=== PATIENT | female | born 1990 | race Caucasian/White ===

== ENCOUNTER 2017-10-16 07:20 | Inpatient (IN) | payer OTHER ==
[2017-10-16] MEDS ORDERED: METHYLERGONOVINE 0.2 MG INJ IM (08:00)
[2017-10-16] MEDS ORDERED: LIDOCAINE 1% (MPF) 30 ML INJ INJ (08:00)
[2017-10-16] MEDS ORDERED: MISOPROSTOL 200 MCG TAB PR (08:00)
[2017-10-16] MEDS ORDERED: CARBOPROST 250 MCG INJ IM (08:00)
[2017-10-16] MEDS ORDERED: BUTORPHANOL 2 MG INJ IV (08:00)
[2017-10-16] MEDS ORDERED: IBUPROFEN 600 MG TAB PO (08:00)
[2017-10-16] MEDS ORDERED: OXYTOCIN 30 UNITS/LR 500 ML IV (08:00)
[2017-10-16] MEDS: LACTATED RINGER'S 1,000 ML IV ×2 (08:19→16:32)
[2017-10-16 08:24] LABS: ADD MAN DIFF? NO
[2017-10-16 08:32] LABS: BASOPHILS % 0.3 % (0.0-2.0); EOSINOPHILS # 0.1 10^3/ul (0.0-0.5); EOSINOPHILS % 0.7 % (0.0-7.0); HEMATOCRIT 36.1 % (37.0-47.0); HEMOGLOBIN 11.8 g/dl (12.0-16.0); LYMPHOCYTES # 1.8 10^3/ul (0.8-2.9); LYMPHOCYTES % 17.3 % (15.0-51.0); MEAN CORPUSCULAR HEMOGLOBIN 28.3 pg (29.0-33.0); MEAN CORPUSCULAR HGB CONC 32.7 g/dl (32.0-37.0); MEAN CORPUSCULAR VOLUME 86.6 fl (82.0-101.0); MONOCYTE # 0.7 10^3/ul (0.3-0.9); MONOCYTES % 6.7 % (0.0-11.0); NEUTROPHIL # 7.5 10^3/ul (1.6-7.5); NEUTROPHILS % 73.8 % (39.0-77.0); NUCLEATED RED BLOOD CELLS% 0.2 /100WBC (0.0-0.0); PLATELET COUNT 219 10^3/UL (140-415); RED BLOOD COUNT 4.17 10^6/ul (4.20-5.40); RED CELL DISTRIBUTION WIDTH 17.1 % (11.5-14.5)
[2017-10-16 08:32] LABS: WHITE BLOOD COUNT 10.2 10^3/ul (4.8-10.8)
[2017-10-16 08:54] LABS: PARTIAL THROMBOPLASTIN TIME 26.9 Sec (25.0-35.0); PROTIME 12.2 Sec (11.9-14.9)
[2017-10-16 09:21] LABS: HEPATITIS B SURFACE ANTIGEN NEGATIVE (NEGATIVE)
[2017-10-16] MEDS ORDERED: MISOPROSTOL 25 MCG CAPSULE (09:50)
[2017-10-16] MEDS: MISOPROSTOL 200 MCG TAB PO (10:30)
[2017-10-16] MEDS ORDERED: MISOPROSTOL 100 MCG TAB PO ×2 (10:30→13:00)
[2017-10-16] MEDS: MISOPROSTOL 25 MCG CAPSULE PO ×3 (14:40→23:00)
[2017-10-16 22:50] LABS: RAPID PLASMA REAGIN NONREACTIVE (NR)
[2017-10-17] MEDS: LACTATED RINGER'S 1,000 ML IV ×4 (00:38→22:27)
[2017-10-17] MEDS: MISOPROSTOL 25 MCG CAPSULE PO ×3 (03:00→14:51)
[2017-10-17] MEDS: OXYTOCIN 30 UNITS/LR 500 ML IV (20:01)
[2017-10-18] MEDS: LACTATED RINGER'S 1,000 ML IV ×2 (02:35→02:48)
[2017-10-18] MEDS ORDERED: NALOXONE (0.4 MG/ML) INJ IV (03:00)
[2017-10-18] MEDS ORDERED: FENTAnyl 2MCG/ML-ROPIV 0.2% 100 ML BAG EPI (03:00)
[2017-10-18] MEDS ORDERED: ONDANSETRON 4 MG INJ IV (03:00)
[2017-10-18] MEDS ORDERED: DIPHENHYDRAMINE 50 MG INJ IV (03:00)
[2017-10-18] MEDS ORDERED: EPHEDrine SULFATE 50 MG/5 ML SYG IV (03:00)
[2017-10-18] MEDS: OXYTOCIN 30 UNITS/LR 500 ML IV ×2 (04:45→04:54)
[2017-10-18] MEDS ORDERED: CARBOPROST 250 MCG INJ IM (09:00)
[2017-10-18] MEDS ORDERED: HYDROCODONE/APAP (5/325) TAB PO (09:00)
[2017-10-18] MEDS ORDERED: ACETAMINOPHEN 325 MG TAB PO (09:00)
[2017-10-18] MEDS ORDERED: DIBUCAINE 1% 30 GM OINT TOP (09:00)
[2017-10-18] MEDS ORDERED: OXYTOCIN 30 UNITS/LR 500 ML IV (09:00)
[2017-10-18] MEDS ORDERED: METHYLERGONOVINE 0.2 MG INJ IM (09:00)
[2017-10-18] MEDS ORDERED: MISOPROSTOL 200 MCG TAB PR (09:00)
[2017-10-18] MEDS: SENNA/DOCUSATE NA (8.6MG/50MG) TAB PO ×2 (09:37→20:29)
[2017-10-18] MEDS: LANOLIN 7 GM TUBE TOP (09:38)
[2017-10-18] MEDS: BENZOCAINE 20% 56 ML SPRAY TOP (09:38)
[2017-10-18] MEDS: WITCH HAZEL/GLYCERIN PAD PR (09:38)
[2017-10-18] MEDS: LACTATED RINGER'S 1,000 ML IV* ×2 (09:42→19:00)
[2017-10-18] MEDS: IBUPROFEN 600 MG TAB PO ×3 (12:00→23:50)
[2017-10-18] MEDS: MINERAL OIL LIGHT 10 ML VIAL TOP (19:00)
[2017-10-19] MEDS: IBUPROFEN 600 MG TAB PO ×4 (06:00→23:53)
[2017-10-19] MEDS: SENNA/DOCUSATE NA (8.6MG/50MG) TAB PO ×2 (09:18→21:07)
[2017-10-19 09:37] LABS: ADD MAN DIFF? NO
[2017-10-19 09:41] LABS: BASOPHIL # 0.1 10^3/ul (0.0-0.1); BASOPHILS % 0.4 % (0.0-2.0); EOSINOPHILS # 0.1 10^3/ul (0.0-0.5); EOSINOPHILS % 0.8 % (0.0-7.0); HEMATOCRIT 36.6 % (37.0-47.0); HEMOGLOBIN 11.9 g/dl (12.0-16.0); LYMPHOCYTES # 2.8 10^3/ul (0.8-2.9); LYMPHOCYTES % 16.6 % (15.0-51.0); MEAN CORPUSCULAR HEMOGLOBIN 28.5 pg (29.0-33.0); MEAN CORPUSCULAR HGB CONC 32.5 g/dl (32.0-37.0); MEAN CORPUSCULAR VOLUME 87.8 fl (82.0-101.0); MEAN PLATELET VOLUME 11.6 fl (7.4-10.4); MONOCYTES % 5.7 % (0.0-11.0); NEUTROPHILS % 75.9 % (39.0-77.0); PLATELET COUNT 217 10^3/UL (140-415); RED BLOOD COUNT 4.17 10^6/ul (4.20-5.40); RED CELL DISTRIBUTION WIDTH 18.4 % (11.5-14.5)
[2017-10-19 09:41] LABS: WHITE BLOOD COUNT 17.2 10^3/ul (4.8-10.8)
[2017-10-20] MEDS: IBUPROFEN 600 MG TAB PO ×2 (05:43→12:00)
[2017-10-20 06:55] LABS: ADD MAN DIFF? NO
[2017-10-20 07:00] LABS: BASOPHIL # 0.1 10^3/ul (0.0-0.1); BASOPHILS % 0.4 % (0.0-2.0); EOSINOPHILS # 0.3 10^3/ul (0.0-0.5); HEMATOCRIT 33.5 % (37.0-47.0); LYMPHOCYTES # 2.5 10^3/ul (0.8-2.9); LYMPHOCYTES % 20.1 % (15.0-51.0); MEAN CORPUSCULAR HEMOGLOBIN 28.9 pg (29.0-33.0); MEAN CORPUSCULAR HGB CONC 32.8 g/dl (32.0-37.0); MEAN CORPUSCULAR VOLUME 88.2 fl (82.0-101.0); MEAN PLATELET VOLUME 11.6 fl (7.4-10.4); MONOCYTE # 0.7 10^3/ul (0.3-0.9); MONOCYTES % 5.5 % (0.0-11.0); NEUTROPHIL # 8.9 10^3/ul (1.6-7.5); NEUTROPHILS % 71.1 % (39.0-77.0); PLATELET COUNT 211 10^3/UL (140-415)
[2017-10-20 07:00] LABS: WHITE BLOOD COUNT 12.5 10^3/ul (4.8-10.8)
[2017-10-20] MEDS ORDERED: DIPHTH/TET/ACEL PERTUSS (ADULT) 0.5 ML VIAL IM* (09:00)
[2017-10-20] MEDS: SENNA/DOCUSATE NA (8.6MG/50MG) TAB PO (09:16)
== END 2017-10-20 14:45 | disposition home or self-care (01) | DRG 775 ==
LOC: L-D 07:20 → PP1 10-18 08:31
PROVIDERS: Obstetrics & Gynecology
PROC: 10E0XZZ Delivery of Products of Conception, External Approach (ICD-10-PCS; principal; 2017-10-18)
PROC: 0UQGXZZ Repair Vagina, External Approach (ICD-10-PCS; 2017-10-18)
PROC: 3E033VJ Introduction of Other Hormone into Peripheral Vein, Percutaneous Approach (ICD-10-PCS; 2017-10-18)
DX: O36.5930 Maternal care for other known or suspected poor fetal growth, third trimester, not applicable or unspecified (principal); O71.4 Obstetric high vaginal laceration alone; O69.81X0 Labor and delivery complicated by cord around neck, without compression, not applicable or unspecified; Z3A.38 38 weeks gestation of pregnancy; Z37.0 Single live birth
CPT/HCPCS: 62319; 85025; 85610; 85730; 86592; 86850; 86900; 86901; 87340; 88307